=== PATIENT | male | born 1990 | race Caucasian/White ===

== ENCOUNTER 2019-12-04 18:55 | Emergency (ER) | payer MEDICAID, OTHER ==
[~2019-12-04] VITALS: Ht 170.2 cm; Wt 86.2 kg
[2019-12-04 19:24] VITALS: BP 127/95
--- NOTE | 2019-12-04 20:07 | NUR ---
PATIENT LEFT WITHOUT BEING SEEN BY DR. DAN. NO FURTHER CARE PROVIDED FOR PATIENT.
== END 2019-12-04 20:07 | disposition left against medical advice (07) ==
LOC: MED 18:55
DX: M54.5 Low back pain (principal); Z53.21 Procedure and treatment not carried out due to patient leaving prior to being seen by health care provider

== ENCOUNTER 2023-04-30 10:11 | Emergency (ER) | payer OTHER ==
[~2023-04-30] VITALS: Ht 172.7 cm; Wt 86.2 kg
[2023-04-30 10:12] VITALS: BP 133/95; PULSE 109; RESP 16; TEMP 98.5; O2SAT 96
[2023-04-30] MEDS ORDERED: KETOROLAC 60 MG/2 ML VIAL IM ONE (11:25)
[2023-04-30] MEDS ORDERED: IBUP-2213 PO (11:46)
[2023-04-30] MEDS ORDERED: ONDA8TAB87 PO (11:46)
[2023-04-30] MEDS ORDERED: OMEP40EC24 PO (11:46)
[2023-04-30 11:57] VITALS: BP 130/82; PULSE 88; RESP 16; TEMP 98; O2SAT 97
== END 2023-04-30 11:57 | disposition home or self-care (01) ==
LOC: MED 10:11
DX: R10.13 Epigastric pain (principal); R11.2 Nausea with vomiting, unspecified; Z79.899 Other long term (current) drug therapy
CPT/HCPCS: 96372; 99283; J1885

== ENCOUNTER 2023-08-11 10:31 | Emergency (ER) | payer SELFPAY ==
[~2023-08-11] VITALS: Ht 172.7 cm; Wt 86.2 kg
[~2023-08-11 10:31] MED LIST: IBUP-2213 PO; OMEP40EC24 PO; ONDA8TAB87 PO
[2023-08-11 10:46] VITALS: BP 129/91; PULSE 81; RESP 19; TEMP 98; O2SAT 95
[2023-08-11 11:37] LABS: BASOPHILS # (AUTO) 0.1 K/uL (0.00-0.22); BASOPHILS % (AUTO) 0.7 % (0.0-2.0); EOSINOPHILS # (AUTO) 0.2 K/uL (0-0.4); EOSINOPHILS % (AUTO) 2.6 % (0.0-4.0); HEMATOCRIT 50.6 % (36-52); HEMOGLOBIN 17.7 g/dL (12.0-18.0); LYMPHOCYTES # (AUTO) 2.6 K/uL (2.0-11.5); LYMPHOCYTES % (AUTO) 27.8 % (20.5-51.1); MEAN CORPUSCULAR HEMOGLOBIN 31 pg (27-31); MEAN CORPUSCULAR HGB CONC 35 g/dL (33-37); MEAN CORPUSCULAR VOLUME 88.4 fL (80-94); MONOCYTES # (AUTO) 0.7 K/uL (0.8-1.0); MONOCYTES % (AUTO) 6.9 % (1.7-9.3); NEUTROPHILS # (AUTO) 5.9 K/uL (1.8-7.7); PLATELET COUNT (AUTO) 479 K/uL (140-450); RED BLOOD CELL COUNT(AUTO) 5.72 MIL/uL (4.20-6.10); RED CELL DISTRIBUTION WIDTH 13.3 % (11.6-13.7); WHITE BLOOD COUNT (AUTO) 9.4 K/uL (4.8-10.8)
[2023-08-11 12:02] LABS: ALBUMIN 3.9 g/dL (3.4-5.0); BILIRUBIN,DIRECT 0.1 mg/dL (0.0-0.3); TOTAL BILIRUBIN 0.5 mg/dL (0.0-1.0); TOTAL PROTEIN, SERUM 9.2 g/dL (6.4-8.2)
[2023-08-11 12:05] LABS: ANION GAP 11.8 (8-16); APPEARANCE,URINE CLEAR (CLEAR); BILIRUBIN,URINE NEGATIVE (NEGATIVE); BLOOD, URINE 1+ (NEGATIVE); CALCIUM 9.5 mg/dL (8.5-10.1); COLOR,URINE YELLOW (YELLOW); LEUKOCYTE ESTERASE ,URINE NEGATIVE (NEGATIVE); NITRITE, URINE NEGATIVE (NEGATIVE); POTASSIUM 3.8 mmol/L (3.5-5.1); PROTEIN,URINE NEGATIVE (NEGATIVE); UGLUCOSE NEGATIVE (NEGATIVE); UROBILINOGEN,URINE 0.2 EU/dL (0.2 - 1)
[2023-08-11 12:32] LABS: BACTERIA,URINE OCCASSIONAL /HPF (None Seen); RBC,URINE 0-5 /HPF (0-5); SQUAMOUS EPITHELIAL CELL,UR 0-3 (FEW) /LPF (0-3 (FEW)); WBC,URINE 0-5 /HPF (0-5)
[2023-08-11] MEDS ORDERED: ONDA-188 PO (13:40)
[2023-08-11] MEDS ORDERED: NAPR-54 PO (13:40)
[2023-08-11 13:47] VITALS: BP 111/56; PULSE 81; RESP 19; TEMP 98; O2SAT 95
== END 2023-08-11 13:46 | disposition home or self-care (01) ==
LOC: MED 10:31
DX: R10.31 Right lower quadrant pain (principal); R11.2 Nausea with vomiting, unspecified; Z79.899 Other long term (current) drug therapy
CPT/HCPCS: 36415; 74177; 80048; 80076; 81001; 83690; 85025; 99285; Q9967